=== PATIENT | male | born 1990 | race Caucasian/White ===

== ENCOUNTER 2020-12-08 04:06 | Emergency (ER) | payer OTHER ==
[~2020-12-08] VITALS: Ht 175.3 cm; Wt 65.3 kg
[~2020-12-08 04:06] MED LIST: AMBIEN10 MG; CLONAZEPAM2 MG PO; GEODON40 MG; KETO10TA2 PO; LITHIUM CARBON450 MG; SEROQUEL XR50 MG
[2020-12-08] MEDS ORDERED: KETO10TA2 PO (05:18)
[2020-12-08] MEDS ORDERED: AMOX-CLAV 875-1 EACH PO (05:18)
== END 2020-12-08 05:27 | disposition home or self-care (01) ==
LOC: ER 04:06
DX: K08.89 Other specified disorders of teeth and supporting structures (principal)

== ENCOUNTER 2020-12-13 12:12 | Emergency (ER) | payer OTHER ==
[~2020-12-13] VITALS: Ht 175.3 cm; Wt 63.5 kg
[~2020-12-13 12:12] MED LIST changes: +AMOX-CLAV 875-1 EACH PO
== END 2020-12-13 17:06 | disposition home or self-care (01) ==
LOC: ER 12:12
DX: S13.8XXA Sprain of joints and ligaments of other parts of neck, initial encounter (principal); S00.03XA Contusion of scalp, initial encounter; R55 Syncope and collapse; V49.88XA Car occupant (driver) (passenger) injured in other specified transport accidents, initial encounter; Y93.89 Activity, other specified; Y92.488 Other paved roadways as the place of occurrence of the external cause; Y99.8 Other external cause status